=== PATIENT | male | born 1985 | race Caucasian/White ===

== ENCOUNTER 2023-06-30 12:07 | Outpatient (OUT) | payer BC, SELFPAY ==
--- NOTE | 2023-06-30 12:15 | XR_ITS ---
The [address] [address] Patient Name: SURI PRETTY MRN: [id number] date: 1985 Sex: M Assigned Patient Location: RAD Current Patient Location: [facility] Accession/Order Number: [id number] Exam Date: 06/30/2023 12:18 Report Date: 06/30/2023 13:21 At the request of: SIRENA DOBBINS Procedure: XR lumbar spine 2-3V EXAM: XR lumbar spine 2-3V HISTORY: M54.50 COMPARISON: None. TECHNIQUE: 3 views FINDINGS: Satisfactory alignment. Maintained vertebral body heights and disc spaces. No acute fracture or subluxation. Unremarkable soft tissues. XR/XR lumbar spine 2-3V IMPRESSION: Unremarkable exam. Electronically authenticated by: AUSTYN DELGADO Date: 06/30/2023 13:21
== END 2023-06-30 12:08 | disposition home or self-care (01) ==
PROVIDERS: PCP Family Medicine; Visit Provider Family Medicine
DX: M54.50 Low back pain, unspecified (principal)
CPT/HCPCS: 72100

== ENCOUNTER 2023-07-22 07:29 | Outpatient (RCR) | payer BC, SELFPAY | END 2023-08-06 16:33 | disposition home or self-care (01) | LOC: PT 07:29 | PROVIDERS: PCP Family Medicine | DX: M54.50 Low back pain, unspecified (principal) | CPT/HCPCS: 97110; 97140; 97161 ==